=== PATIENT | male | born 1955 | race Caucasian/White ===

== ENCOUNTER → 2018-03-17 | Outpatient (CLI) | payer MEDICAID ==
[~2018-03-17] MED LIST: AMIT50TA PO; AMLO5TAB7 PO; ASPI325T17 PO; BISA10SU2 PR; DIAZ10TA4 PO; DIAZ5TAB PO; GABA-827 PO; MAGN400O7 PO; METH500T7 PO; MORP15TA PO; OMNIPAQUE 350 MG/ML, 100ML BOTTLE ONE; ONDA4TAB13 SL; OXYC5CAP2 PO; OXYC5TAB3 PO; PT TO BRING DOS; SENN8.6T12 PO; TRAM50TA2 PO; ZOLP10TA5 PO
== END | disposition home or self-care (01) ==
LOC: CFH 09:42
PROVIDERS: ATTEND Physician Assistant
DX: M47.896 Other spondylosis, lumbar region (principal); K21.9 Gastro-esophageal reflux disease without esophagitis; Z80.0 Family history of malignant neoplasm of digestive organs
CPT/HCPCS: 74177; 82565; Q9967

== ENCOUNTER 2019-02-18 10:29 | Day surgery (SDC) | payer MEDICAID ==
[~2019-02-18] VITALS: Ht 177.8 cm; Wt 92.7 kg
[~2019-02-18 10:29] MED LIST changes: +AMLO-150 PO; -AMLO5TAB7 PO; -BISA10SU2 PR; +BISA10SU4 PR; -OMNIPAQUE 350 MG/ML, 100ML BOTTLE ONE
[2019-02-18 10:48] VITALS: BP 142/89
[2019-02-18] MEDS ORDERED: LACTATED RINGERS 1,000 ML IV SCH (10:51)
[2019-02-18] MEDS ORDERED: PLEASE ENTER HEIGHT AND WEIGHT MC SCH (11:00)
[2019-02-18] MEDS ORDERED: PROPOFOL 10 MG/ML, 20ML ONE (15:55)
== END 2019-02-18 14:20 | disposition home or self-care (01) ==
LOC: OUT 10:29 → EDSTATUS 12:45 → OUT 14:20
PROVIDERS: ATTEND Anesthesiology
DX: M54.12 Radiculopathy, cervical region (principal); I10 Essential (primary) hypertension; J44.9 Chronic obstructive pulmonary disease, unspecified; Z79.891 Long term (current) use of opiate analgesic; Z79.899 Other long term (current) drug therapy; Z88.8 Allergy status to other drugs, medicaments and biological substances
CPT/HCPCS: 72141; J2704